=== PATIENT | female | born 1990 | race Caucasian/White ===

== ENCOUNTER 2017-11-15 08:07 | Inpatient (IN) | payer OTHER ==
[~2017-11-15] VITALS: Ht 152.4 cm; Wt 68.2 kg
[2017-11-15] VITALS (43 sets, daily range): BP systolic 90–155; BP diastolic 52–85; PULSE 86–151; TEMP 97.6–99.9
[2017-11-15] MEDS ORDERED: PRENATAL (08:44)
[2017-11-15 10:23] LABS: BASO % 0.4 % (0.0-2.0); EOS # 0.2 (0.0-0.7); EOS % 2.2 % (0-4.0); GRAN # 5.7 (1.4-6.5); GRAN % 70.8 % (42.2-75.2); HEMATOCRIT 38.1 % (37.0-47.0); HEMOGLOBIN 12.8 g/dl (12.5-16.0); LYMPH # 1.7 (1.2-3.4); LYMPH % 21.2 % (20.0-51.0); MEAN CELL VOLUME 89 fl (80.0-100.0); MEAN CORPUSCULAR HEMOGLOBIN 30 pg (27.0-31.0); MEAN CORPUSCULAR HGB CONC 34 g/dl (33.0-37.0); MEAN PLATELET VOLUME 10.3 fl (7.4-10.4); MONO # 0.4 (0.1-0.6); MONO % 4.7 % (1.7-9.3); PLATELET COUNT 293 K/mm3 (130-400); RED BLOOD COUNT 4.26 M/mm3 (4.10-5.30); REDCELL DISTRIBUTION WIDTH-CV 13.1 % (11.5-14.5)
[2017-11-15] MEDS ORDERED: PROFERRIN ES12 MG PO (11:38)
[2017-11-15] MEDS ORDERED: FOLIC ACID 40400 MCG PO (11:39)
[2017-11-16 01:30] VITALS: BP 92/46; PULSE 96; TEMP 98.1
[2017-11-16 04:45] VITALS: BP 100/59; PULSE 84; TEMP 97.9
[2017-11-16 07:30] VITALS: BP 99/48; PULSE 85; TEMP 97.6
[2017-11-16 12:45] VITALS: BP 103/51; PULSE 81; TEMP 98.3
[2017-11-16 15:30] VITALS: BP 92/51; PULSE 80; TEMP 97.9
[2017-11-16 20:40] VITALS: BP 98/58; PULSE 103; TEMP 98.4
[2017-11-17 08:00] VITALS: BP 100/59; PULSE 89; TEMP 97.8
[2017-11-17] MEDS ORDERED: PERCOCET 325 MG1 TA2 PO (09:04)
[2017-11-17] MEDS ORDERED: IBU800 M1 PO (09:04)
[2017-11-17] MEDS ORDERED: TUCKS50% TP (09:05)
[2017-11-17 16:30] VITALS: BP 102/59; PULSE 90; TEMP 98.5
== END 2017-11-17 18:00 | disposition home or self-care (01) | DRG 775 ==
LOC: LDRO 08:07 → LDR 08:50 → OB 08:50
PROVIDERS: Obstetrics & Gynecology
PROC: 10D07Z6 Extraction of Products of Conception, Vacuum, Via Natural or Artificial Opening (ICD-10-PCS; principal; 2017-11-15)
PROC: 0W8NXZZ Division of Female Perineum, External Approach (ICD-10-PCS; 2017-11-15)
DX: O76 Abnormality in fetal heart rate and rhythm complicating labor and delivery (principal); Z3A.38 38 weeks gestation of pregnancy; Z37.0 Single live birth
CPT/HCPCS: J2590; J2795; J7120